=== PATIENT | male | born 1960 | race Caucasian/White ===

== ENCOUNTER → 2021-11-29 16:31 | Outpatient (CLI) | payer BC, SELFPAY ==
--- NOTE | ~2021-11-29 | XR_ITS ---
EXAMINATION: XR hip BI 2V w AP pelvis DATE: 11/29/2021 17:18 INDICATION: Hip pain TECHNIQUE: AP view the pelvis and two views of each hip were obtained. COMPARISON: 12/15/2008 FINDINGS: Bone alignment is normal. There is no fracture of the soft tissues are unremarkable. There are phleboliths of the left pelvis. IMPRESSION: 1. No acute osseous abnormality. Reviewed, dictated and finalized at location A.
== END ==
DX: M25.559 Pain in unspecified hip (principal)
CPT/HCPCS: 73521

== ENCOUNTER → 2022-03-23 15:55 | Outpatient (CLI) | payer BC, SELFPAY ==
--- NOTE | ~2022-03-23 | XR_ITS ---
EXAMINATION: XR lumbar spine min 4V, XR sacroiliac joints min 3V DATE: 03/23/2022 16:42 INDICATION: Chronic bilateral low back pain without sciatica TECHNIQUE: 1. Anteroposterior, lateral, and bilateral oblique views of the lumbar spine, and cone-down lateral v iew of the lumbosacral junction were obtained. 2. AP and left and right oblique views of the sacroiliac joints were obtained. COMPARISON: Pelvis radiographs dated 11/29/2021 FINDINGS: Lumbar spine: 4 mm retrolisthesis L5 on S1. Vertebral body heights are normal. Mild disc height loss at L3-L4 and L 4-L5. No pars interarticularis defects. Multilevel mild lumbar facet osteoarthritis. Sacral iliac joints: Sacral arches are intact. Mild bilateral sacroiliac osteoarthritis. No erosions or lytic or sclerosis to suggest inflammatory sacroiliitis. Mild osteoarthritis at the bilateral hips. IMPRESSION: 1. Mild lower lumbar spondylosis. 2. Mild bilateral sacroiliac osteoarthritis. Reviewed, dictated and finalized at location B. IMPRESSION: 1. Mild lower lumbar spondylosis. 2. Mild bilateral sacroiliac osteoarthritis.
== END ==
DX: M47.817 Spondylosis without myelopathy or radiculopathy, lumbosacral region (principal); M47.818 Spondylosis without myelopathy or radiculopathy, sacral and sacrococcygeal region
CPT/HCPCS: 72110; 72202

== ENCOUNTER 2022-09-13 07:23 | Emergency (ER) | payer BC, SELFPAY ==
[2022-09-13 07:25] VITALS: BP 135/69; PULSE 86; RESP 18; TEMP 36.9; O2SAT 98
--- NOTE | 2022-09-13 11:02 | ED.SKABFB ---
HPI - Skin/Abscess/Foreign Bdy General Chief complaint: Skin/Abscess/Foreign Body Stated complaint: rash x 1 day Time Seen by Provider: 09/13/22 10:21 Source: patient Mode of arrival: ambulatory Limitations: no limitations History of Present Illness HPI narrative: Patient is a 62 y/o male who presents to the ED with c/o rash to his legs, trunk, and arms. Patient reports he first noticed the rash yesterday. Rash consistent with erythematous circular lesions, hive-like, first noticed on his legs, and has since extended into his waistband region, trunk, arms. The rash is very itchy, nonpainful. He has tried taking Benadryl without much improvement. He notes he was outside on Monday, but denied being bitten by anything or exposed to any obvious allergens. He does not think he has ever had a reaction to poison chetan in the past. He also mentions he was started on sulfasalazine due to psoriatic arthritis in June. He believes he has had an adverse/allergic reaction to sulfa in the past, but cannot remember. The dose of this medication was increased on Monday, and patient wonders if this could be related to the rash. He denies ever having an issue with the medication in the past. Denies any difficulty breathing or swallowing, swelling of throat or lips, shortness of breath, nausea, vomiting, fevers. Related Data Home Medications Medication Instructions Recorded Confirmed atorvastatin 40 mg tablet (Lipitor) 40 mg PO DAILY 09/08/21 09/08/21 cefdinir 300 mg capsule 300 mg PO Q12H 09/08/21 09/08/21 fluticasone propionate 50 1 spray intranasal DAILY 09/08/21 09/08/21 mcg/actuation nasal spray,suspension (Flonase Allergy Relief) folic acid 1 mg tablet 1 mg PO DAILY 09/08/21 09/08/21 hydrocodone 5 mg-acetaminophen 325 1 tablet PO Q8H PRN 09/08/21 09/08/21 mg tablet loratadine 10 mg capsule 10 mg PO DAILY 09/08/21 09/08/21 methotrexate 2.5 mg/mL oral 2 mg PO WEEKLY 09/08/21 09/08/21 solution Allergies Allergy/AdvReac Type Severity Reaction Status Date / Time Penicillins Allergy Unknown Unknown Verified 09/13/22 07:24 Sulfa (Sulfonamide Allergy Unknown Unknown Verified 09/13/22 07:24 Antibiotics) Review of Systems Review of Systems: CONSTITUTIONAL: Denies fever, chills, or sweats. ENT: See HPI. CARDIOVASCULAR: Denies chest pain, palpitations, or edema. RESPIRATORY: Denies cough or dyspnea. GASTROINTESTINAL: Denies abdominal pain, nausea, vomiting. GENITOURINARY: Denies dysuria or hematuria. SKIN: See HPI. MUSCULOSKELETAL: Denies back pain, joint pain, or myalgia. NEUROLOGIC: Denies headache, numbness, or weakness. All systems reviewed & are unremarkable except as noted in HPI and below PMFSH Past Medical History Medical History Coronary artery disease Hyperlipidemia Myocardial infarction Psoriatic arthritis Surgical History Surgical History History of cardiac catheterization History of coronary artery stent placement Social History Social History Smoking packs per day: 0.5 Smoking cigarettes per day: 10.0 Smoking status: Current some day smoker Tobacco type: cigarettes and e-cigarettes/vaping Alcohol intake: never Exam Narrative: GENERAL: Well appearing, well-nourished, non-toxic, in no acute distress. HEAD: Normocephalic, atraumatic. ENT: No mucosal lesions or swelling, MMs moist. NECK: Supple. No adenopathy, no masses. RESPIRATORY: Airway patent, respirations nonlabored. Clear to auscultation bilaterally, no rales, rhonchi, wheezing. CARDIOVASCULAR: Regular rate and rhythm without murmurs, rubs, or gallops. Radial pulses 2+ and equal bilaterally. MUSCULOSKELETAL: Moves all extremities. Strength/ROM intact without gross deformities. SKIN: Warm, dry, normal color. No rashes. Scattered circular erythematous le
[2022-09-13] MEDS: methylPREDNISolone SOD SUCC 125 MG VIAL IM (11:49)
[2022-09-13] MEDS: FAMOTIDINE 20 MG TABLET PO (11:50)
[2022-09-13] MEDS: diphenhydrAMINE HCl CAP 25 MG CAPSULE PO (11:50)
== END 2022-09-13 13:19 | disposition home or self-care (01) ==
PROVIDERS: Emergency Provider Physician Assistant
DX: L50.9 Urticaria, unspecified (principal); I25.10 Atherosclerotic heart disease of native coronary artery without angina pectoris; E78.5 Hyperlipidemia, unspecified; I25.2 Old myocardial infarction; L40.50 Arthropathic psoriasis, unspecified; Z95.5 Presence of coronary angioplasty implant and graft; F17.210 Nicotine dependence, cigarettes, uncomplicated; F17.290 Nicotine dependence, other tobacco product, uncomplicated; Z79.631 Long term (current) use of antimetabolite agent; Z79.891 Long term (current) use of opiate analgesic
CPT/HCPCS: 96372; 99283; A9270; J2930

== ENCOUNTER → 2022-12-24 11:16 | Outpatient (CLI) | payer BC, SELFPAY ==
--- NOTE | ~2022-12-24 | XR_ITS ---
XR foot RT min 3V DATE: 12/24/2022 13:03 INDICATION: Psoriatic arthritis TECHNIQUE: 4 views COMPARISON: None FINDINGS: No calcaneal enthesopathy. Os tibiale externum, normal variant. There are osteoarthritic changes at the distal interphalangeal joints. No fracture or dislocation, periosteal reaction or bone destruction. IMPRESSION: Osteoarthritis at the distal interphalangeal joints Reviewed, dictated and finalized at location A.
--- NOTE | ~2022-12-24 | XR_ITS ---
XR hand BI arthritis min 3V DATE: 12/24/2022 13:01 INDICATION: Psoriatic arthritis TECHNIQUE: 4 views of each hand COMPARISON: None FINDINGS: Right hand: There are mild to moderate osteoarthritic changes at all 5 metacarpophalangeal joints, mo st prominent at the second. There is mild osteoarthritic change at the distal interphalangeal joints. No fracture or dislocation, periosteal reaction or bone destruction, erosive change or chondrocalcino sis is noted. Left hand: There is mild osteophytic change at the metacarpophalangeal joints and distal interphalang eal joint of the first and fifth digits. No fracture, dislocation, periosteal reaction or bone destruction, erosive change or chondrocalcinosi s is noted. IMPRESSION: Polyarticular osteoarthritis Reviewed, dictated and finalized at location A.
--- NOTE | ~2022-12-24 | XR_ITS ---
XR foot LT min 3V DATE: 12/24/2022 13:03 INDICATION: Psoriatic osteoarthritis TECHNIQUE: 4 views COMPARISON: None FINDINGS: No calcaneal enthesopathy. Os tibiale externum, normal variant. There is osteoarthritis at the distal interphalangeal joints of the first through third digits primar janet. No fracture, dislocation, periosteal reaction or bone destruction. IMPRESSION: Mild osteoarthritis involving primarily the first through third distal interphalangeal gabbi ints Reviewed, dictated and finalized at location A. IMPRESSION: Mild osteoarthritis involving primarily the first through third dis tony interphalangeal joints
--- NOTE | ~2022-12-24 | XR_ITS ---
XR wrist RT min 3V DATE: 12/24/2022 12:59 INDICATION: Psoriatic arthritis TECHNIQUE: 4 views COMPARISON: None FINDINGS: No fracture or dislocation, periosteal reaction or bone destruction, erosive change or wilfredo drocalcinosis is noted. Several small cysts of the navicular and lunate bones. IMPRESSION: Nonspecific findings Reviewed, dictated and finalized at location A. IMPRESSION: Nonspecific findings
--- NOTE | ~2022-12-24 | XR_ITS ---
XR wrist LT min 3V DATE: 12/24/2022 12:59 INDICATION: Psoriatic arthritis TECHNIQUE: 4 views of left wrist COMPARISON: None FINDINGS: No fracture or dislocation, periosteal reaction or bone destruction or erosive change or ch ondrocalcinosis is noted. Joint spaces appear relatively well preserved. Small benign cysts of the di stal radius, lunate and capitate bones. IMPRESSION: Nonspecific examination Reviewed, dictated and finalized at location A. IMPRESSION: Nonspecific examination
== END ==
DX: L40.50 Arthropathic psoriasis, unspecified (principal); M19.072 Primary osteoarthritis, left ankle and foot; M19.071 Primary osteoarthritis, right ankle and foot; M19.041 Primary osteoarthritis, right hand; M19.042 Primary osteoarthritis, left hand
CPT/HCPCS: 73110; 73130; 73630